=== PATIENT | female | born 1990 | race Caucasian/White ===

== ENCOUNTER 2017-05-12 18:29 | Emergency (ER) | payer SELFPAY ==
[2017-05-12 18:44] VITALS: BP 133/71; PULSE 115; TEMP 100.2; BMI 24.2
[2017-05-12] MEDS ORDERED: IBUPROFEN 600 MG TABLET (FP) PO ONE ×2 (20:10→20:14)
--- NOTE | 2017-05-12 20:15 | PDOC ---
History of Present Illness - General Chief Complaint: Cold Symptoms Stated Complaint: COLD SYMPTOMS Time Seen by Provider: 05/12/17 19:11 History Source: Patient Exam Limitations: No Limitations - History of Present Illness Initial Comments: 05/12/17 20:10 My chief complaint: Sore throat, lightheadedness, generalized body aches and fevers History of present illness: Patient is a 26-year-old female with a history of allergic rhinitis here today complaining of intermittent fever, sore throat, slight nausea and decreased appetite with generalized body aches and lightheadedness 2 days. Eyes any sick contacts or any recent travel. Patient does not have any difficulty breathing slight difficulty swallowing due to soreness of throat but is able to swallow. Patient is supposed to travel this week. Pt took amoxicillin 1 1 dose today that she had left over. 05/12/17 20:13 Timing/Duration: getting worse Severity: moderate Associated Symptoms: reports: fever/chills, headaches (intermittent), nausea/ vomiting (nausea ), other (bodyaches) Past History - Past Medical History Allergies/Adverse Reactions: Allergies Allergy/AdvReac Type Severity Reaction Status Date / Time No Known Allergies Allergy Verified 05/12/17 18:40 Home Medications: Ambulatory Orders NK [No Known Home Medication] 05/12/17 Asthma: No Cancer: No Cardiac Disorders: No Diabetes: No HTN: No Seizures: No Thyroid Disease: No - Immunization History Immunization Up to Date: Yes - Psycho/Social/Smoking Cessation Hx Anxiety: No Suicidal Ideation: No Smoking History: Never smoked Have you smoked in the past 12 months: No Information on smoking cessation initiated: No Hx Alcohol Use: No Drug/Substance Use Hx: No Substance Use Type: None Hx Substance Use Treatment: No Review of Systems - Review of Systems Able to Perform ROS?: Yes Constitutional: Yes: Fever, Loss of Appetite, Weakness (generalized weakness and body aches) HEENTM: Yes: Throat Pain Respiratory: No: Symptoms reported Cardiac (ROS): Yes: Lightheadedness ABD/GI: Yes: Nausea, Poor Appetite : No: Symptoms Reported Musculoskeletal: No: Symptoms Reported Integumentary: No: Symptoms Reported Neurological: Yes: Headache (intermittent) *Physical Exam - Vital Signs Last Vital Signs Temp Pulse Resp BP Pulse Ox 100.2 F H 115 H 17 133/71 98 05/12/17 18:40 05/12/17 18:40 05/12/17 18:40 05/12/17 18:40 05/12/17 18:40 - Physical Exam General Appearance: Yes: Appropriately Dressed HEENT: positive: EOMI, JAN, TMs Normal, Pharyngeal Erythema, Tonsillar Erythema (with no uvular deviation ). negative: Tonsillar Exudate, Nasal Congestion, Rhinorrhea Neck: positive: Lymphadenopathy (R), Lymphadenopathy (L) Respiratory/Chest: positive: Lungs Clear, Normal Breath Sounds. negative: Chest Tender, Respiratory Distress Cardiovascular: positive: Regular Rhythm, Regular Rate, S1, S2 Gastrointestinal/Abdominal: positive: Normal Bowel Sounds, Soft. negative: Tender, Organomegaly, Distended, Guarding, Rebound, Tenderness, Hepatomegaly, Spleenomegaly Integumentary: positive: Normal Color Neurologic: positive: front line supervisor II-XII NML intact, Alert, Normal Response, Respond to painful stimul, Responsive. negative: Numbness, Sensory Deficit ED Treatment Course - ADDITIONAL ORDERS Additional order review: Laboratory Results 05/12/17 19:20 Urine HCG, Qual Negative Medical Decision Making - Medical Decision Making 05/12/17 20:11 Patient is a 26-year-old female with a history of allergic rhinitis here today complaining of intermittent fever, sore throat, slight nausea and decreased appetite with generalized body aches and lightheadedness 2 days. Eyes any sick contacts or any recent travel. Patient does not have any difficulty breathing slight difficulty swallowing due to soreness of throat but is able to swallow. Patient is supposed to travel this week. 05/12/17 20:14 r/o strep throat tonsillitis PLAN: throat C & S rapid negative urine hcg negative Ibuprofen 600mg po now 05/12/17 20:40 based on clinical symptoms sade treat pt. will bicillin LA *DC/Admit/Observation/Transfer Diagnosis at time of Disposition: Tonsillitis Fever Qualifiers: Fever type: unspecified Qualified Code(s): R50.9 - Fever, unspecified - Discharge Dispostion Disposition: HOME Condition at time of disposition: Stable - Patient Instructions Additional Instructions: Throw out toothbrush get new one take ibuprofen as needed as directed by regulatory compliance specialist for pain or fever follow up with your cartoonist special effects in a few days return to emergency room if symptoms worsen any difficulty breathing or swallowing drink a lot of fluids and rest patient voiced understanding of discharge instructions and all questions were answered
[2017-05-12] MEDS ORDERED: PENICILLIN G BENZATHINE 1,200,000 UNIT/2 ML PFS IM ONE (20:41)
[2017-05-12] MEDS ORDERED: PENICILLIN G BENZATHINE 2,400,000 UNIT/4 ML PFS ONE (20:48)
== END 2017-05-12 21:22 | disposition home or self-care (01) ==
LOC: JERFT 18:29
DX: J03.90 Acute tonsillitis, unspecified (principal); R50.9 Fever, unspecified
CPT/HCPCS: 84703; 87070; 87430; 99281-25